=== PATIENT | female | born 1965 | race Caucasian/White ===

== ENCOUNTER → 2017-08-26 | Outpatient (CLI) | payer BC, OTHER ==
[~2017-08-26] MED LIST: CA C1TAB75 PO; DOXY25TA50 PO; ESTR0.62 PO; FEXO-14 PO; HYDR-757 PO; IBUP-1773 PO; MULT-301 PO
--- NOTE | 2017-08-26 18:39 | Diagnostic Imaging Report ---
INDICATION: Routine screening. COMPARISON: Comparison is made with prior exam from 05/16/2014. The current study was also evaluated with a Computer Aided Detection (CAD) system. FINDINGS: Bilateral breast implants are again noted. Implant contours appear smooth. Scattered fibroglandular densities throughout both breasts are identified. There is a biopsy clip in the right breast. There are benign-appearing calcifications bilaterally. No discrete mass or malignant appearing microcalcifications are seen. The axillae are unremarkable. IMPRESSION: No mammographic features suspicious for malignancy are identified. ACR BI-RADS Category 2: Benign findings. Result letter will be mailed to the patient. Note: At least 10% of breast cancer is not imaged by mammography. Dictated by: Dictated on workstation # [id number]
== END ==
LOC: RAD 11:00
PROVIDERS: ATTEND Obstetrics & Gynecology
DX: Z12.31 Encounter for screening mammogram for malignant neoplasm of breast (principal)
CPT/HCPCS: 77067

== ENCOUNTER → 2019-05-18 | Outpatient (CLI) | payer BC ==
[~2019-05-18] MED LIST changes: +HYDR-4226 PO; -HYDR-757 PO
--- NOTE | 2019-05-18 17:03 | Diagnostic Imaging Report ---
INDICATION: Routine screening. Comparison is made with prior mammograms from 08/26/2017 and 05/16/2014. 2-D and 3-D bilateral screening mammography was performed. The current study was also evaluated with a Computer Aided Detection (CAD) system. 3-D tomosynthesis was also performed and reviewed. FINDINGS: Bilateral breast implants are again noted. Implant contours are smooth. Scattered fibroglandular densities are noted in both breasts. Biopsy clip in upper right breast is again noted. The parenchymal pattern is stable. There are benign calcifications. No dominant mass or malignant-appearing microcalcifications are seen. Axillae are unremarkable. IMPRESSION: No mammographic features suspicious for malignancy are identified. ACR BI-RADS Category 2: Benign findings. Result letter will be mailed to the patient. Note: At least 10% of breast cancer is not imaged by mammography. Dictated by: Dictated on workstation # [id number]
== END ==
LOC: RAD 11:05
PROVIDERS: ATTEND Obstetrics & Gynecology
DX: Z12.31 Encounter for screening mammogram for malignant neoplasm of breast (principal)
CPT/HCPCS: 77067

== ENCOUNTER → 2019-06-29 | Outpatient (CLI) | payer BC ==
--- NOTE | 2019-06-29 14:20 | Diagnostic Imaging Report ---
INDICATION: Back pain. Thoracic spine. FINDINGS: AP and lateral views of the thoracic spine show normal vertebral body height and alignment. Intervertebral disc spaces are normal. IMPRESSION: Unremarkable thoracic spine. There is very slight scoliotic curvature of the lower thoracic spine convex to the right. The amount of curvature is less than 5 degrees. Dictated by: Dictated on workstation # [id number]
--- NOTE | 2019-06-29 15:13 | Diagnostic Imaging Report ---
EXAMINATION: Chest and bilateral ribs. INDICATION: Bilateral rib pain. A single PA view of the chest and two views of both ribs were obtained. FINDINGS: The heart size is within normal limits and stable when compared to 12/11/2007. The lungs are clear. There is no sign of a pneumothorax or of a contusion. There is no evidence for pneumonia or failure either. The mediastinum is not widened. The views of the ribs fail to show any sign of a displaced rib fracture. IMPRESSION: There is no evidence for an acute cardiopulmonary or bony abnormality. Dictated by: Dictated on workstation # [id number]
== END ==
LOC: RAD 13:00
PROVIDERS: ATTEND Chiropractor
DX: M41.84 Other forms of scoliosis, thoracic region (principal); M79.2 Neuralgia and neuritis, unspecified; R07.81 Pleurodynia
CPT/HCPCS: 71110; 72072

== ENCOUNTER → 2020-08-20 | Outpatient (CLI) | payer BC ==
--- NOTE | 2020-08-20 16:15 | Diagnostic Imaging Report ---
INDICATION: Routine screening. COMPARISON: 05/18/2019 and 08/26/2017. TECHNIQUE/COMPARISON: 2D and 3D bilateral screening mammography was performed with CAD. FINDINGS: Bilateral subpectoral breast implants are again noted. There is no evidence of extracapsular rupture. There are scattered fibroglandular densities in both breasts. The biopsy clip in the right breast is again noted. There are benign calcifications bilaterally. No mass or malignant appearing microcalcifications are seen. The axillae are unremarkable. IMPRESSION: No mammographic features suspicious for malignancy are identified. ACR BI-RADS Category 2: Benign findings. Result letter will be mailed to the patient. Note: At least 10% of breast cancer is not imaged by mammography. Dictated by: Dictated on workstation # [id number]
== END ==
LOC: RAD 13:40
PROVIDERS: ATTEND Obstetrics & Gynecology
DX: Z12.31 Encounter for screening mammogram for malignant neoplasm of breast (principal)
CPT/HCPCS: 77063; 77067